=== PATIENT | female | born 1955 | race Caucasian/White ===

== ENCOUNTER 2016-09-28 11:49 | Outpatient (CLI) | payer OTHER ==
--- NOTE | 2016-09-28 13:31 | DIAGNOSTIC IMAGING REPORT ---
PROCEDURE: MR BRAIN WITHOUT CONTRAST INDICATION: CHRONIC DIZZINESS TECHNIQUE: Multiplanar multisequence MRI imaging of the brain without contrast. COMPARISON: Brain MRI 09/08/2014 FINDINGS: Occasional, widely scattered T2 and FLAIR hyperintensities in the bifrontal white matter, the largest in the left posteromedial frontal white matter measuring 5 mm. The signal throughout the brain is otherwise normal. The morphology is normal. Normal ventricular system and patent basal cisterns. Flow voids of the intracranial vessels are normally maintained. No restricted diffusion to suggest acute ischemia, mass, mass effect or midline shift, or evidence of hemorrhage. A thin slice images through the internal auditory canals demonstrate normal course and caliber of the visible cranial nerves. No masses. Signal throughout the calvarium is normal. Extracranial soft tissues including orbits are normal signal. Normally aerated sinuses. IMPRESSION: 1. No change from the previous study. Occasional, nonspecific focal hyperintensities in the bifrontal subcortical white matter most suggestive of chronic microvascular ischemic change,
== END 2016-09-28 23:00 | disposition home or self-care (01) ==
LOC: MRI SRH 11:49
DX: R42 Dizziness and giddiness (principal)